=== PATIENT | male | born 1965 | race Hispanic/Latino ===

== ENCOUNTER 2018-04-05 09:51 | Emergency (ER) | payer OTHER ==
[~2018-04-05] VITALS: Ht 167.6 cm; Wt 83.9 kg
[2018-04-05] MEDS ORDERED: NEOMYCIN/POLYMYX/BACITR OINT 0.9 GM PKT TOP ONE (10:30)
[2018-04-05] MEDS ORDERED: HYDROCODONE/APAP 7.5MG-325MG 1 EA TAB PO ONE (10:30)
[2018-04-05] MEDS ORDERED: LIDOCAINE HCL 1% LOCAL INJ 20 ML VIAL INJ ONE (10:30)
--- NOTE | 2018-04-05 12:01 | Diagnostic Imaging Report ---
PROCEDURE:HAND RIGHT 3 VIEWS AP & LAT COMPARISON:None. INDICATIONS:RIGHT HAND TRAUMA FINDINGS: No evidence of fracture or malalignment. There is soft tissue edema at the thenar eminence and base of the thumb. The bones are well-mineralized. CONCLUSION: Soft tissue edema at the thenar eminence/base of thumb without evidence of fracture or malalignment. Dictated by: BAMBI JACOB M.D. on 04/05/2018 at 12:11 Electronically approved by: BAMIB JACOB M.D. on 04/05/2018 at 12:11
[2018-04-05] MEDS ORDERED: TETANUS/DIPHTHERIA TOX ADULT 0.5 ML SYR ONE (12:13)
[2018-04-05] MEDS ORDERED: TETANUS/DIPHTHERIA TOX ADULT 0.5 ML SYR IM ONE (12:15)
== END 2018-04-05 12:28 | disposition home or self-care (01) ==
LOC: ER 09:51
DX: S61.011A Laceration without foreign body of right thumb without damage to nail, initial encounter (principal); S60.411A Abrasion of left index finger, initial encounter; W26.8XXA Contact with other sharp object(s), not elsewhere classified, initial encounter; Y92.008 Other place in unspecified non-institutional (private) residence as the place of occurrence of the external cause
CPT/HCPCS: 12002; 73130; 90471; 90714; 99284; J2001